=== PATIENT | female | born 1940 | race Caucasian/White ===

== ENCOUNTER 2021-09-19 18:13 | Emergency (ER) | payer MEDICARE ==
[2021-09-19 19:19] LABS: #Basophils 0.1 10x3/uL (0.0-0.2); #Eosinphils 0.3 10x3/uL (0.0-0.5); %Basophils 0.3 % (0.0-2.0); %Lymphocytes 9.7 % (18.0-47.0); %Monocytes 6.4 % (0.0-10.0); %Neutrophils 79.5 % (40.0-75.0); Hemoglobin 10.3 g/dL (12.0-15.5); Mean Corpuscular HGB CONC 29.7 g/dL (32.0-36.0); Mean Corpuscular Hemoglobin 24.9 pg (27.0-33.0); Mean Corpuscular Volume 83.8 fl (81.6-98.3); Mean Platelet Volume 8.4 fl (7.4-10.4); Platelet Count 305 10x3/uL (150-450); RBC Distribution Width 13.7 % (11.5-14.5); Red Blood Cell (RBC) Count 4.14 10x6/uL (3.90-5.03); White Blood Cell (WBC) Count 16.3 10x3/uL (3.5-10.5)
[2021-09-19 19:36] LABS: ALT (SGPT) 16 U/L (8-55); AST (SGOT) 21 U/L (5-34); Albumin 3.4 g/dL (3.4-4.8); Alkaline Phosphatase 100 U/L (40-110); Anion Gap 13 mmol/L (10-20); BUN (Urea Nitrogen) 11 mg/dL (9.8-20.1); Bilirubin, Total 0.3 mg/dL (0.2-1.2); Calc. Creatinine Clearance 0 mL/min (70-130); Calcium 9.2 mg/dL (7.8-10.44); Carbon Dioxide 28 mmol/L (23-31); Chloride 101 mmol/L (98-107); Globulin 3.9 g/dL (2.4-3.5); Glucose 89 mg/dL (83-110); Potassium 4.3 mmol/L (3.5-5.1); Protein, Total 7.3 g/dL (5.8-8.1); Sodium 138 mmol/L (136-145)
[2021-09-19 20:11] LABS: Hypochromia SLIGHT = 6-15 cells (100X) (0-5/hpf)
[2021-09-19 20:12] LABS: Platelet Morphology Comment Appears Adequate
== END 2021-09-19 20:11 | disposition home or self-care (01) ==
LOC: CSHERS 18:13
DX: R06.02 Shortness of breath (principal); R53.1 Weakness; Z79.899 Other long term (current) drug therapy; I50.9 Heart failure, unspecified; J44.9 Chronic obstructive pulmonary disease, unspecified; Z87.891 Personal history of nicotine dependence
CPT/HCPCS: 71045; 80053; 83880; 84484; 85025; 93005; 94760

== ENCOUNTER 2022-02-09 09:49 | Emergency (ER) | payer OTHER, MEDICARE | END 2022-02-09 11:37 | disposition home or self-care (01) | LOC: CSHERS 09:49 | DX: S81.811A Laceration without foreign body, right lower leg, initial encounter (principal); S00.03XA Contusion of scalp, initial encounter; I25.10 Atherosclerotic heart disease of native coronary artery without angina pectoris; I50.9 Heart failure, unspecified; J43.9 Emphysema, unspecified; W01.10XA Fall on same level from slipping, tripping and stumbling with subsequent striking against unspecified object, initial encounter; Z87.891 Personal history of nicotine dependence; Z99.2 Dependence on renal dialysis | CPT/HCPCS: 70450; 72125 ==

== ENCOUNTER 2022-04-11 16:18 | Inpatient (IN) | payer MEDICARE, OTHER ==
[2022-04-11 17:12] LABS: #Basophils 0.1 10x3/uL (0.0-0.2); #Eosinphils 0.4 10x3/uL (0.0-0.5); #Monocytes 0.9 10x3/uL (0.0-1.1); #Neutrophils 6.3 10x3/uL (1.5-8.4); %Basophils 0.6 % (0.0-2.0); %Eosinophils 3.9 % (0.0-6.0); %Monocytes 9.8 % (0.0-10.0); %Neutrophils 69.1 % (40.0-75.0); Hemoglobin 7.6 g/dL (12.0-15.5); Mean Corpuscular HGB CONC 27.9 g/dL (32.0-36.0); Mean Corpuscular Hemoglobin 20.3 pg (27.0-33.0); Mean Corpuscular Volume 72.5 fl (81.6-98.3); Mean Platelet Volume 8.9 fl (7.4-10.4); Platelet Count 198 10x3/uL (150-450); RBC Distribution Width 16.8 % (11.5-14.5); Red Blood Cell (RBC) Count 3.75 10x6/uL (3.90-5.03)
[2022-04-11 17:27] LABS: ALT (SGPT) Less than 6 U/L (8-55); AST (SGOT) 15 U/L (5-34); Albumin 4.1 g/dL (3.4-4.8); Alkaline Phosphatase 84 U/L (40-110); Anion Gap 17 mmol/L (10-20); BUN (Urea Nitrogen) 32 mg/dL (9.8-20.1); Bilirubin, Total 0.4 mg/dL (0.2-1.2); Calc. Creatinine Clearance 0 mL/min (70-130); Carbon Dioxide 27 mmol/L (23-31); Chloride 101 mmol/L (98-107); Globulin 3.3 g/dL (2.4-3.5); Glucose 119 mg/dL (83-110); Potassium 5.1 mmol/L (3.5-5.1); Protein, Total 7.4 g/dL (5.8-8.1); Sodium 140 mmol/L (136-145)
[2022-04-11 17:42] LABS: Anisocytosis SLIGHT = 6-15 cells (100X) (0-5/hpf); Hypochromia MARKED = >30 cells (100X) (0-5/hpf)
[2022-04-11] MEDS ORDERED: Furosemide 40 MG/4 ML VIAL ONE (18:06)
[2022-04-11 19:36] LABS: SARS-CoV-2 NAA Rapid Test Not Detected (NotDetected)
[2022-04-11 20:16] LABS: Lactic Acid 1.3 mmol/L (0.5-2.2)
[2022-04-11 21:24] VITALS: BMI 35.4
[2022-04-11] MEDS ORDERED: Senokot S 8.6-50 MG TAB PO PRN (22:50)
[2022-04-11] MEDS ORDERED: Acetaminophen 325 MG TAB PO PRN (22:50)
[2022-04-11] MEDS ORDERED: Calcium Carbonate 500 MG ChewTAB PO PRN (22:50)
[2022-04-11] MEDS ORDERED: Guaifenesin DM 100-10/5 ML UDCUP PO PRN (22:50)
[2022-04-11] MEDS ORDERED: Ondansetron PF 4 MG/2 ML Vial IVP PRN (22:50)
[2022-04-11] MEDS ORDERED: ALPRAZolam 0.25 MG TAB PO PRN (22:53)
[2022-04-11] MEDS ORDERED: Oxybutynin 5 MG TAB PO PRN (22:53)
[2022-04-11] MEDS: HYDROcodone/Acetaminophen 10/325 mg Tablet PO PRN (23:31)
[2022-04-11] MEDS ORDERED: HYDROcodone/Acetaminophen 10/325 mg Tablet ONE (23:32)
[2022-04-11 23:38] LABS: Iron 21 ug/dL (50-170); Iron Binding Capacity, Total 514 mcg/dL (265-497)
[2022-04-11] MEDS ORDERED: Zolpidem Tartrate 5 MG TAB PO PRN (23:40)
[2022-04-11] MEDS ORDERED: Gabapentin 300 MG CAP PO SCH (23:45)
[2022-04-11] MEDS ORDERED: Gabapentin 300 MG CAP ONE (23:53)
[2022-04-11] MEDS ORDERED: Pantoprazole 40 MG VIAL ONE (23:54)
[2022-04-11] MEDS: Pantoprazole 40 MG VIAL IVP SCH (23:57)
[2022-04-11 23:58] LABS: Ferritin 11.55 ng/mL (10-291)
[2022-04-12 04:36] LABS: Hemoglobin 8.4 g/dL (12.0-15.5); Mean Corpuscular Hemoglobin 21.5 pg (27.0-33.0); Mean Corpuscular Volume 74.2 fl (81.6-98.3); Mean Platelet Volume 8.1 fl (7.4-10.4); Platelet Count 163 10x3/uL (150-450); RBC Distribution Width 17.8 % (11.5-14.5); Red Blood Cell (RBC) Count 3.91 10x6/uL (3.90-5.03); White Blood Cell (WBC) Count 6.9 10x3/uL (3.5-10.5)
[2022-04-12 04:50] LABS: Anion Gap 14 mmol/L (10-20); BUN (Urea Nitrogen) 32 mg/dL (9.8-20.1); Calc. Creatinine Clearance 35 mL/min (70-130); Calcium 8.7 mg/dL (7.8-10.44); Carbon Dioxide 30 mmol/L (23-31); Chloride 100 mmol/L (98-107); Glucose 103 mg/dL (83-110); Potassium 4.6 mmol/L (3.5-5.1); Sodium 139 mmol/L (136-145)
[2022-04-12] MEDS: HYDROcodone/Acetaminophen 10/325 mg Tablet PO PRN ×3 (04:54→21:39)
[2022-04-12 05:02] LABS: MDiff Complete? YES
[2022-04-12 05:05] LABS: Eosinophils 10 % (0-10); Lymphocytes 21 % (21-51); Monocytes 12 % (0-10); Neutrophil 56 % (42-75); Reactive Lymphocytes 1 % (0-10)
[2022-04-12 05:06] LABS: Hypochromia SLIGHT = 6-15 cells (100X) (0-5/hpf); Ovalocytes SLIGHT = 2-5 cells (100X) (0-1/hpf)
[2022-04-12 05:07] LABS: Platelet Morphology Comment Appears Adequate
[2022-04-12] MEDS: Mometasone/Formoterol 200/5 60 PUFF INH SCH ×2 (06:52→19:50)
[2022-04-12] MEDS ORDERED: Escitalopram Oxalate 20 mg Tablet PO SCH (09:00)
[2022-04-12] MEDS ORDERED: [UNRECOGNIZED DRUG - OTHER] INH SCH (09:00)
[2022-04-12] MEDS ORDERED: Non-Formulary Medication 1 EACH (Budesonide-Formoterol [Symbicort 160-4.5] 160 MG/4.5 MG A INH SCH (09:00)
[2022-04-12] MEDS ORDERED: ALBUTEROL SULFATE INH SCH (09:00)
[2022-04-12] MEDS ORDERED: Montelukast Sodium 10 mg Tablet PO SCH (09:00)
[2022-04-12] MEDS ORDERED: IPRATROPIUM INH SCH (09:00)
[2022-04-12 09:59] LABS: #Basophils 0.1 10x3/uL (0.0-0.2); #Eosinphils 0.5 10x3/uL (0.0-0.5); #Neutrophils 4.1 10x3/uL (1.5-8.4); %Basophils 0.7 % (0.0-2.0); %Eosinophils 6.2 % (0.0-6.0); %Monocytes 13.5 % (0.0-10.0); %Neutrophils 55.2 % (40.0-75.0); Hemoglobin 9.5 g/dL (12.0-15.5); Mean Corpuscular HGB CONC 29.4 g/dL (32.0-36.0); Mean Corpuscular Hemoglobin 22.4 pg (27.0-33.0); Mean Corpuscular Volume 76.2 fl (81.6-98.3); Mean Platelet Volume 8.6 fl (7.4-10.4); Platelet Count 163 10x3/uL (150-450); RBC Distribution Width 17.9 % (11.5-14.5); Red Blood Cell (RBC) Count 4.24 10x6/uL (3.90-5.03); White Blood Cell (WBC) Count 7.5 10x3/uL (3.5-10.5)
[2022-04-12] MEDS: Pantoprazole 40 MG VIAL IVP SCH ×2 (10:05→23:57)
[2022-04-12] MEDS ORDERED: Iron Sucrose Complex 200 MG in Sodium Chloride 0.9% 100 ML IVPB SCH (11:15)
[2022-04-12] MEDS ORDERED: Iron, Sodium Ferric Gluconate 250 MG in Sodium Chloride 0.9% 250 ML 250 ML IVPB SCH (11:30)
[2022-04-12 12:03] LABS: Magnesium 2.4 mg/dL (1.6-2.6)
[2022-04-12] MEDS ORDERED: Dextromethorphan Polistirex 30 MG/5 ML SUSPENSION PO PRN (12:31)
[2022-04-12] MEDS ORDERED: Benzonatate 100 MG CAP PO PRN (12:58)
[2022-04-12] MEDS ORDERED: GoLYTELY 4,000 ml Bottle PO SCH (20:15)
[2022-04-12] MEDS ORDERED: Gabapentin 300 MG CAP PO SCH (21:00)
[2022-04-12] MEDS ORDERED: Ezetimibe 10 MG TAB PO SCH (21:00)
[2022-04-12] MEDS ORDERED: guaiFENesin ER 600 MG TAB PO SCH (21:00)
[2022-04-12] MEDS ORDERED: Simvastatin 10 MG TAB PO SCH (21:00)
[2022-04-13] MEDS: Mometasone/Formoterol 200/5 60 PUFF INH SCH ×2 (07:30→18:56)
[2022-04-13] MEDS ORDERED: Spironolactone 25 MG TAB PO SCH (09:00)
[2022-04-13] MEDS ORDERED: PROPOFOL 20 ML ONE ×2 (09:27→09:59)
[2022-04-13] MEDS ORDERED: Lidocaine 1% PF 5 ML VIAL ONE ×2 (09:27→09:28)
[2022-04-13] MEDS ORDERED: Ketamine 50 MG/ML (10ML VIAL) ONE (09:29)
[2022-04-13] MEDS ORDERED: PHENYLEPHRINE-NS 100 MCG/ML 10 ML SYRINGE ONE (09:35)
[2022-04-13 15:32] VITALS: BP 133/62; TEMP 97.1
[2022-04-13] MEDS: HYDROcodone/Acetaminophen 10/325 mg Tablet PO PRN (17:02)
== END 2022-04-13 18:00 | disposition home or self-care (01) | DRG 811 ==
LOC: CSHERS 16:18 → CSHTELE 21:11
PROVIDERS: ADMIT Hospitalist; ATTEND Hospitalist
PROC: 30233N1 Transfusion of Nonautologous Red Blood Cells into Peripheral Vein, Percutaneous Approach (ICD-10-PCS; 2022-04-12)
PROC: 0DJ08ZZ Inspection of Upper Intestinal Tract, Via Natural or Artificial Opening Endoscopic (ICD-10-PCS; principal; 2022-04-13)
PROC: 0DBK8ZZ Excision of Ascending Colon, Via Natural or Artificial Opening Endoscopic (ICD-10-PCS; 2022-04-13)
DX: D50.9 Iron deficiency anemia, unspecified (principal); J96.21 Acute and chronic respiratory failure with hypoxia; I13.0 Hypertensive heart and chronic kidney disease with heart failure and stage 1 through stage 4 chronic kidney disease, or unspecified chronic kidney disease; N17.9 Acute kidney failure, unspecified; I50.32 Chronic diastolic (congestive) heart failure; I42.9 Cardiomyopathy, unspecified; I25.10 Atherosclerotic heart disease of native coronary artery without angina pectoris; K21.9 Gastro-esophageal reflux disease without esophagitis; J84.10 Pulmonary fibrosis, unspecified; N18.32 Chronic kidney disease, stage 3b; G89.29 Other chronic pain; R73.03 Prediabetes; I73.9 Peripheral vascular disease, unspecified; E66.01 Morbid (severe) obesity due to excess calories; F32.A Depression, unspecified; E78.2 Mixed hyperlipidemia; K26.9 Duodenal ulcer, unspecified as acute or chronic, without hemorrhage or perforation; K63.5 Polyp of colon; K64.9 Unspecified hemorrhoids; J43.9 Emphysema, unspecified; F41.9 Anxiety disorder, unspecified; M48.00 Spinal stenosis, site unspecified; Z20.822 Contact with and (suspected) exposure to COVID-19; Z95.1 Presence of aortocoronary bypass graft; I25.2 Old myocardial infarction; Z98.890 Other specified postprocedural states; Z90.710 Acquired absence of both cervix and uterus; Z98.891 History of uterine scar from previous surgery; Z90.49 Acquired absence of other specified parts of digestive tract; Z99.81 Dependence on supplemental oxygen; Z95.5 Presence of coronary angioplasty implant and graft; Z79.02 Long term (current) use of antithrombotics/antiplatelets; Z95.810 Presence of automatic (implantable) cardiac defibrillator; Z82.49 Family history of ischemic heart disease and other diseases of the circulatory system; Z87.891 Personal history of nicotine dependence; Z88.5 Allergy status to narcotic agent; Z88.0 Allergy status to penicillin; Z88.2 Allergy status to sulfonamides; Z88.8 Allergy status to other drugs, medicaments and biological substances; Z91.09 Other allergy status, other than to drugs and biological substances; Z79.899 Other long term (current) drug therapy; Z79.891 Long term (current) use of opiate analgesic; Z79.82 Long term (current) use of aspirin; Z79.01 Long term (current) use of anticoagulants; Z68.35 Body mass index [BMI] 35.0-35.9, adult
CPT/HCPCS: 36415; 36430; 71045; 80048; 80053; 82607; 82728; 82746; 83540; 83550; 83605; 83735; 83880; 84484; 85025; 86850; 86900; 86901; 88305; 93005; 94760; 96374; C9113; J1940; J2405; J2704; J2916; J7050; P9016; U0002

== ENCOUNTER 2022-07-06 08:39 | Inpatient (IN) | payer MEDICARE, OTHER ==
[2022-07-06 09:23] LABS: #Basophils 0.1 10x3/uL (0.0-0.2); #Eosinphils 0.5 10x3/uL (0.0-0.5); #Monocytes 0.7 10x3/uL (0.0-1.1); #Neutrophils 9.9 10x3/uL (1.5-8.4); %Basophils 0.4 % (0.0-2.0); %Lymphocytes 7.6 % (18.0-47.0); %Neutrophils 81.1 % (40.0-75.0); Hemoglobin 11.8 g/dL (12.0-15.5); Mean Corpuscular HGB CONC 31.1 g/dL (32.0-36.0); Mean Corpuscular Hemoglobin 26.5 pg (27.0-33.0); Mean Corpuscular Volume 85.4 fl (81.6-98.3); Mean Platelet Volume 8.4 fl (7.4-10.4); Platelet Count 238 10x3/uL (150-450); Red Blood Cell (RBC) Count 4.45 10x6/uL (3.90-5.03); White Blood Cell (WBC) Count 12.3 10x3/uL (3.5-10.5)
[2022-07-06 09:42] LABS: ALT (SGPT) 11 U/L (8-55); AST (SGOT) 17 U/L (5-34); Albumin 3.6 g/dL (3.4-4.8); Alkaline Phosphatase 112 U/L (40-110); Anion Gap 14 mmol/L (10-20); BUN (Urea Nitrogen) 15 mg/dL (9.8-20.1); Bilirubin, Total 0.5 mg/dL (0.2-1.2); CK (CPK) 55 U/L (29-168); Calc. Creatinine Clearance 0 mL/min (70-130); Calcium 8.5 mg/dL (7.8-10.44); Carbon Dioxide 24 mmol/L (23-31); Chloride 102 mmol/L (98-107); Estimated GFR 36; Glucose 115 mg/dL (83-110); Potassium 4.3 mmol/L (3.5-5.1); Protein, Total 6.6 g/dL (5.8-8.1); Sodium 136 mmol/L (136-145)
[2022-07-06 10:25] LABS: SARS-CoV-2 NAA Rapid Test Not Detected (NotDetected)
[2022-07-06] MEDS ORDERED: Azithromycin 500 MG VIAL ONE (10:28)
[2022-07-06] MEDS ORDERED: cefTRIAXone\\ROCEPHIN 1 GM VIAL ONE ×2 (10:28)
[2022-07-06] MEDS ORDERED: Levalbuterol HCl 0.63 MG/3 ML NEB NEB SCH (10:30)
[2022-07-06] MEDS ORDERED: Acetaminophen 325 MG TAB PO PRN (12:50)
[2022-07-06] MEDS ORDERED: Ondansetron ODT 4 MG TAB PO PRN (12:50)
[2022-07-06 14:00] LABS: Troponin I Less than 0.010 ng/mL (< 0.028)
[2022-07-06 14:16] VITALS: BMI 33.0
[2022-07-06] MEDS ORDERED: Oxybutynin 5 MG TAB PO PRN (14:30)
[2022-07-06] MEDS: Levalbuterol HCl 0.63 MG/3 ML NEB NEB SCH ×3 (14:30→23:10)
[2022-07-06] MEDS: Ipratropium Bromide 2.5 ml Neb NEB SCH ×3 (16:18→23:10)
[2022-07-06 17:10] LABS: Troponin I Less than 0.010 ng/mL (< 0.028)
[2022-07-06] MEDS: Mometasone/Formoterol 200/5 60 PUFF INH SCH (19:30)
[2022-07-06] MEDS: Potassium Chloride 20 MEQ TAB PO SCH (20:33)
[2022-07-06] MEDS: Montelukast Sodium 10 mg Tablet PO SCH (20:33)
[2022-07-06] MEDS: Gabapentin 300 MG CAP PO SCH (20:33)
[2022-07-06] MEDS: ALPRAZolam 0.25 MG TAB PO SCH (20:33)
[2022-07-07] MEDS: Ipratropium Bromide 2.5 ml Neb NEB SCH ×6 (02:30→23:30)
[2022-07-07] MEDS: Levalbuterol HCl 0.63 MG/3 ML NEB NEB SCH ×6 (02:30→23:30)
[2022-07-07 06:27] LABS: #Eosinphils 0.3 10x3/uL (0.0-0.5); #Monocytes 0.5 10x3/uL (0.0-1.1); #Neutrophils 5.6 10x3/uL (1.5-8.4); %Basophils 0.5 % (0.0-2.0); %Eosinophils 3.9 % (0.0-6.0); %Lymphocytes 15.3 % (18.0-47.0); %Monocytes 6.8 % (0.0-10.0); %Neutrophils 72.6 % (40.0-75.0); Hemoglobin 12.1 g/dL (12.0-15.5); Mean Corpuscular HGB CONC 30.6 g/dL (32.0-36.0); Mean Corpuscular Volume 84.8 fl (81.6-98.3); Mean Platelet Volume 8.2 fl (7.4-10.4); Platelet Count 219 10x3/uL (150-450); RBC Distribution Width 15.9 % (11.5-14.5); Red Blood Cell (RBC) Count 4.66 10x6/uL (3.90-5.03); White Blood Cell (WBC) Count 7.7 10x3/uL (3.5-10.5)
[2022-07-07 06:33] LABS: Anion Gap 13 mmol/L (10-20); BUN (Urea Nitrogen) 13 mg/dL (9.8-20.1); Calc. Creatinine Clearance 47 mL/min (70-130); Calcium 9.3 mg/dL (7.8-10.44); Carbon Dioxide 31 mmol/L (23-31); Chloride 100 mmol/L (98-107); Estimated GFR 44; Glucose 82 mg/dL (83-110); Potassium 4.5 mmol/L (3.5-5.1); Sodium 139 mmol/L (136-145)
[2022-07-07] MEDS: Mometasone/Formoterol 200/5 60 PUFF INH SCH ×2 (07:23→19:50)
[2022-07-07] MEDS: Estradiol 1 MG TAB PO SCH (08:39)
[2022-07-07] MEDS: Atorvastatin Calcium 10 MG TAB PO SCH (08:39)
[2022-07-07] MEDS: Calcium Carbonate 600 MG + Vit D TAB PO SCH (08:39)
[2022-07-07] MEDS: ALPRAZolam 0.25 MG TAB PO SCH ×3 (08:39→20:51)
[2022-07-07] MEDS: Escitalopram Oxalate 20 mg Tablet PO SCH (08:39)
[2022-07-07] MEDS: Spironolactone 25 MG TAB PO SCH (08:40)
[2022-07-07] MEDS: Aspirin 81 mg Enteric Coated Tablet PO SCH (08:41)
[2022-07-07] MEDS: Ezetimibe 10 MG TAB PO SCH (08:41)
[2022-07-07] MEDS ORDERED: Guaifenesin DM 100-10/5 ML UDCUP PO PRN (08:54)
[2022-07-07] MEDS ORDERED: Ezetimibe 10 MG TAB PO SCH (09:00)
[2022-07-07] MEDS ORDERED: Enoxaparin Sodium 30 MG/0.3 ML SYRINGE SC SCH (09:00)
[2022-07-07] MEDS: Azithromycin 500 MG in Sodium Chloride 0.9% 250 ML 250 ML IVPB SCH (11:26)
[2022-07-07] MEDS ORDERED: Dextromethorphan Polistirex 30 MG/5 ML (89 ML BOTTLE) PO PRN (14:29)
[2022-07-07] MEDS: Zolpidem Tartrate 5 MG TAB PO SCH (20:50)
[2022-07-07] MEDS: Montelukast Sodium 10 mg Tablet PO SCH (20:51)
[2022-07-07] MEDS: guaiFENesin ER 600 MG TAB PO SCH (20:51)
[2022-07-07] MEDS: Potassium Chloride 20 MEQ TAB PO SCH (20:51)
[2022-07-07] MEDS: Gabapentin 300 MG CAP PO SCH (20:51)
[2022-07-08] MEDS: Ipratropium Bromide 2.5 ml Neb NEB SCH ×6 (03:00→22:40)
[2022-07-08] MEDS: Levalbuterol HCl 0.63 MG/3 ML NEB NEB SCH ×6 (03:00→22:40)
[2022-07-08 04:47] LABS: #Basophils 0.1 10x3/uL (0.0-0.2); #Eosinphils 0.5 10x3/uL (0.0-0.5); #Monocytes 0.8 10x3/uL (0.0-1.1); #Neutrophils 7.4 10x3/uL (1.5-8.4); %Basophils 0.5 % (0.0-2.0); %Eosinophils 4.6 % (0.0-6.0); %Lymphocytes 13.2 % (18.0-47.0); %Monocytes 7.7 % (0.0-10.0); %Neutrophils 72.6 % (40.0-75.0); Hemoglobin 12.1 g/dL (12.0-15.5); Mean Corpuscular HGB CONC 31.9 g/dL (32.0-36.0); Mean Corpuscular Hemoglobin 26.5 pg (27.0-33.0); Mean Corpuscular Volume 83.1 fl (81.6-98.3); Mean Platelet Volume 8.3 fl (7.4-10.4); Platelet Count 234 10x3/uL (150-450); RBC Distribution Width 15.7 % (11.5-14.5); Red Blood Cell (RBC) Count 4.56 10x6/uL (3.90-5.03); White Blood Cell (WBC) Count 10.2 10x3/uL (3.5-10.5)
[2022-07-08 04:57] LABS: Anion Gap 12 mmol/L (10-20); BUN (Urea Nitrogen) 13 mg/dL (9.8-20.1); Calc. Creatinine Clearance 47 mL/min (70-130); Calcium 9.2 mg/dL (7.8-10.44); Carbon Dioxide 30 mmol/L (23-31); Chloride 97 mmol/L (98-107); Estimated GFR 44; Glucose 97 mg/dL (83-110); Potassium 4.3 mmol/L (3.5-5.1); Sodium 135 mmol/L (136-145)
[2022-07-08] MEDS: Mometasone/Formoterol 200/5 60 PUFF INH SCH ×2 (07:30→19:45)
[2022-07-08] MEDS: Ezetimibe 10 MG TAB PO SCH (08:21)
[2022-07-08] MEDS: Estradiol 1 MG TAB PO SCH (08:21)
[2022-07-08] MEDS: Atorvastatin Calcium 10 MG TAB PO SCH (08:21)
[2022-07-08] MEDS: Spironolactone 25 MG TAB PO SCH (08:22)
[2022-07-08] MEDS: Aspirin 81 mg Enteric Coated Tablet PO SCH (08:22)
[2022-07-08] MEDS: Enoxaparin Sodium 40 MG/0.4 ML SYRINGE SC SCH (08:22)
[2022-07-08] MEDS: ALPRAZolam 0.25 MG TAB PO SCH ×3 (08:22→21:27)
[2022-07-08] MEDS: guaiFENesin ER 600 MG TAB PO SCH ×2 (08:22→21:26)
[2022-07-08] MEDS: Calcium Carbonate 600 MG + Vit D TAB PO SCH (08:22)
[2022-07-08] MEDS: Escitalopram Oxalate 20 mg Tablet PO SCH (08:22)
[2022-07-08] MEDS: Azithromycin 500 MG in Sodium Chloride 0.9% 250 ML 250 ML IVPB SCH (11:03)
[2022-07-08] MEDS ORDERED: Dextrose 50% Abboject 50 ML SYRINGE SLOW IVP PRN (12:28)
[2022-07-08] MEDS ORDERED: Dextrose 5% in Water 1,000 ML IV PRN (12:28)
[2022-07-08] MEDS ORDERED: HumaLOG 300 UNITS/3 ML VIAL SC PRN (12:28)
[2022-07-08] MEDS ORDERED: Furosemide 20 MG TAB PO PRN (12:42)
[2022-07-08] MEDS: Furosemide 40 MG/4 ML VIAL SLOW IVP SCH ×2 (15:04→15:38)
[2022-07-08 17:04] LABS: Actual Bicarbonate (HCO3v) 29 mEq/L (22-28); Base Excess 1.7 mEq/L (-2.0 to +3.0); Calcium, Ionized (venous) 1.12 mmol/L (1.16-1.32); Chloride (VBG) 96 mmol/L (98-106); Puncture Site Other Site; RapidComm Collect By CBN; Sodium 134.1 mmol/L (133-146); pH (venous) 7.31 (7.32-7.43)
[2022-07-08] MEDS: Zolpidem Tartrate 5 MG TAB PO SCH ×2 (21:27→22:03)
[2022-07-08] MEDS: Montelukast Sodium 10 mg Tablet PO SCH (21:27)
[2022-07-08] MEDS: Potassium Chloride 20 MEQ TAB PO SCH (21:27)
[2022-07-08] MEDS: Gabapentin 300 MG CAP PO SCH (21:27)
[2022-07-09] MEDS: Ipratropium Bromide 2.5 ml Neb NEB SCH ×2 (03:46→07:35)
[2022-07-09] MEDS: Levalbuterol HCl 0.63 MG/3 ML NEB NEB SCH ×2 (03:47→07:30)
[2022-07-09 05:20] LABS: Anion Gap 11 mmol/L (10-20); BUN (Urea Nitrogen) 14 mg/dL (9.8-20.1); Calc. Creatinine Clearance 51 mL/min (70-130); Carbon Dioxide 30 mmol/L (23-31); Chloride 99 mmol/L (98-107); Estimated GFR 48; Glucose 103 mg/dL (83-110); Potassium 4.1 mmol/L (3.5-5.1); Sodium 136 mmol/L (136-145)
[2022-07-09 05:37] LABS: #Basophils 0.1 10x3/uL (0.0-0.2); #Eosinphils 0.4 10x3/uL (0.0-0.5); #Monocytes 0.7 10x3/uL (0.0-1.1); #Neutrophils 6.7 10x3/uL (1.5-8.4); %Basophils 0.6 % (0.0-2.0); %Eosinophils 4.4 % (0.0-6.0); %Lymphocytes 14.2 % (18.0-47.0); %Monocytes 7.5 % (0.0-10.0); %Neutrophils 71.9 % (40.0-75.0); Hemoglobin 11.4 g/dL (12.0-15.5); Mean Corpuscular HGB CONC 30.7 g/dL (32.0-36.0); Mean Corpuscular Volume 84.5 fl (81.6-98.3); Mean Platelet Volume 8.1 fl (7.4-10.4); Platelet Count 227 10x3/uL (150-450); RBC Distribution Width 15.5 % (11.5-14.5); Red Blood Cell (RBC) Count 4.39 10x6/uL (3.90-5.03); White Blood Cell (WBC) Count 9.4 10x3/uL (3.5-10.5)
[2022-07-09] MEDS: Mometasone/Formoterol 200/5 60 PUFF INH SCH (07:40)
[2022-07-09] MEDS: Escitalopram Oxalate 20 mg Tablet PO SCH (08:50)
[2022-07-09] MEDS: Enoxaparin Sodium 40 MG/0.4 ML SYRINGE SC SCH (08:50)
[2022-07-09] MEDS: guaiFENesin ER 600 MG TAB PO SCH (08:50)
[2022-07-09] MEDS: Estradiol 1 MG TAB PO SCH (08:50)
[2022-07-09] MEDS: Calcium Carbonate 600 MG + Vit D TAB PO SCH (08:50)
[2022-07-09] MEDS: Spironolactone 25 MG TAB PO SCH (08:50)
[2022-07-09] MEDS: ALPRAZolam 0.25 MG TAB PO SCH (08:50)
[2022-07-09] MEDS: Atorvastatin Calcium 10 MG TAB PO SCH (08:51)
[2022-07-09] MEDS: Ezetimibe 10 MG TAB PO SCH (08:51)
[2022-07-09] MEDS ORDERED: Clopidogrel Bisulfate 75 MG TAB PO SCH (09:00)
[2022-07-09] MEDS: Aspirin 81 mg Enteric Coated Tablet PO SCH (09:03)
[2022-07-09 10:28] VITALS: BP 150/67; TEMP 97.5
[2022-07-09] MEDS ORDERED: Azithromycin 250 MG TAB PO SCH (10:30)
== END 2022-07-09 10:47 | disposition home or self-care (01) | DRG 196 ==
LOC: CSHERS 08:39 → CSHTELE 13:43 → OBSVTOIN 07-07 18:10
PROVIDERS: ADMIT Hospitalist; ATTEND Family Medicine
DX: J84.10 Pulmonary fibrosis, unspecified (principal); J96.21 Acute and chronic respiratory failure with hypoxia; J44.1 Chronic obstructive pulmonary disease with (acute) exacerbation; I42.0 Dilated cardiomyopathy; N17.9 Acute kidney failure, unspecified; I25.10 Atherosclerotic heart disease of native coronary artery without angina pectoris; I50.9 Heart failure, unspecified; Z20.822 Contact with and (suspected) exposure to COVID-19; N18.32 Chronic kidney disease, stage 3b; F41.9 Anxiety disorder, unspecified; F32.A Depression, unspecified; F17.210 Nicotine dependence, cigarettes, uncomplicated; Z96.652 Presence of left artificial knee joint; E78.5 Hyperlipidemia, unspecified; Z95.1 Presence of aortocoronary bypass graft; Z98.890 Other specified postprocedural states; Z90.49 Acquired absence of other specified parts of digestive tract; Z90.710 Acquired absence of both cervix and uterus; Z95.810 Presence of automatic (implantable) cardiac defibrillator; Z88.8 Allergy status to other drugs, medicaments and biological substances; Z88.1 Allergy status to other antibiotic agents; Z88.5 Allergy status to narcotic agent; Z88.2 Allergy status to sulfonamides; Z79.899 Other long term (current) drug therapy; Z79.82 Long term (current) use of aspirin; Z99.81 Dependence on supplemental oxygen
CPT/HCPCS: 36415; 71045; 80048; 80053; 82550; 82805; 83605; 83880; 84484; 85025; 93005; 94640; 94664; 94760; 96365; 96368; 96372; 96376; G0378; J0456; J0696; J1650; J1940; J7050; J7614

== ENCOUNTER 2022-09-09 08:21 | Emergency (ER) | payer MEDICARE, OTHER ==
[2022-09-09] MEDS ORDERED: Azithromycin 500 MG VIAL ONE (08:55)
[2022-09-09 09:06] LABS: Hemoglobin 12.5 g/dL (12.0-15.5); MDiff Complete? YES; Mean Corpuscular HGB CONC 32.2 g/dL (32.0-36.0); Mean Corpuscular Hemoglobin 28.1 pg (27.0-33.0); Mean Corpuscular Volume 87.2 fl (81.6-98.3); Platelet Count 167 10x3/uL (150-450); RBC Distribution Width 13.7 % (11.5-14.5); Red Blood Cell (RBC) Count 4.45 10x6/uL (3.90-5.03); White Blood Cell (WBC) Count 24.2 10x3/uL (3.5-10.5)
[2022-09-09 09:25] LABS: ALT (SGPT) 6 U/L (8-55); AST (SGOT) 19 U/L (5-34); Albumin 3.8 g/dL (3.4-4.8); Alkaline Phosphatase 74 U/L (40-110); Anion Gap 13 mmol/L (10-20); BUN (Urea Nitrogen) 17 mg/dL (9.8-20.1); Bilirubin, Total 1.3 mg/dL (0.2-1.2); Calc. Creatinine Clearance 0 mL/min (70-130); Calcium 9.5 mg/dL (7.8-10.44); Carbon Dioxide 24 mmol/L (23-31); Chloride 103 mmol/L (98-107); Estimated GFR 31; Globulin 3.3 g/dL (2.4-3.5); Glucose 77 mg/dL (83-110); Potassium 4.3 mmol/L (3.5-5.1); Protein, Total 7.1 g/dL (5.8-8.1); Sodium 136 mmol/L (136-145)
[2022-09-09 09:39] LABS: Band 7 % (5-11); Lymphocytes 5 % (21-51); Monocytes 4 % (0-10); Neutrophil 84 % (42-75)
[2022-09-09 09:40] LABS: Platelet Morphology Comment Appears Adequate
[2022-09-09 09:40] LABS: SARS-CoV-2 NAA Rapid Test Not Detected (NotDetected)
== END 2022-09-09 11:00 | disposition home or self-care (01) ==
LOC: CSHERS 08:21
DX: J44.1 Chronic obstructive pulmonary disease with (acute) exacerbation (principal); I25.10 Atherosclerotic heart disease of native coronary artery without angina pectoris; N18.9 Chronic kidney disease, unspecified; I50.9 Heart failure, unspecified; Z87.891 Personal history of nicotine dependence; Z20.822 Contact with and (suspected) exposure to COVID-19
CPT/HCPCS: 0240U; 71045; 80053; 83605; 83880; 84484; 85025; 87040; 93005; 36415; 96374; J0456; J7620